=== PATIENT | female | born 1985 | race Caucasian/White ===

== ENCOUNTER 2020-05-09 13:57 | Emergency (ER) | payer OTHER ==
[~2020-05-09] VITALS: Ht 157.5 cm; Wt 88.5 kg
[2020-05-09] MEDS ORDERED: TOPROL XL50 MG (14:21)
[2020-05-09] MEDS ORDERED: NIFEDIPINE20 MG (14:22)
[2020-05-09] MEDS ORDERED: HYDRODIURIL12.5 MG (14:22)
[2020-05-09] MEDS ORDERED: ZOLOFT25 MG (14:22)
[2020-05-09] MEDS ORDERED: PRENATAL MULTI1 EAC3 (14:23)
== END 2020-05-09 19:16 | disposition home or self-care (01) ==
LOC: ER 13:57
DX: O26.851 Spotting complicating pregnancy, first trimester (principal); O36.80X1 Pregnancy with inconclusive fetal viability, fetus 1; O34.11 Maternal care for benign tumor of corpus uteri, first trimester; D25.9 Leiomyoma of uterus, unspecified; O71.7 Obstetric hematoma of pelvis

== ENCOUNTER 2020-06-03 17:59 | Emergency (ER) | payer OTHER ==
[~2020-06-03] VITALS: Ht 157.5 cm; Wt 88.9 kg
[~2020-06-03 17:59] MED LIST: HYDRODIURIL12.5 MG; NIFEDIPINE20 MG; PRENATAL MULTI1 EAC3; TOPROL XL50 MG; ZOLOFT25 MG
[2020-06-03] MEDS ORDERED: ALDOMET250 MG/5 M PO (18:09)
== END 2020-06-04 11:05 | disposition home or self-care (01) ==
LOC: ER 17:59
DX: O26.851 Spotting complicating pregnancy, first trimester (principal); O36.80X1 Pregnancy with inconclusive fetal viability, fetus 1; O34.11 Maternal care for benign tumor of corpus uteri, first trimester; O43.891 Other placental disorders, first trimester; Z3A.08 8 weeks gestation of pregnancy

== ENCOUNTER 2020-06-26 13:07 | Emergency (ER) | payer OTHER ==
[~2020-06-26] VITALS: Ht 157.5 cm; Wt 89.8 kg
[~2020-06-26 13:07] MED LIST changes: +ALDOMET250 MG/5 M PO
== END 2020-06-26 18:11 | disposition home or self-care (01) ==
LOC: ER 13:07
DX: O26.851 Spotting complicating pregnancy, first trimester (principal); O36.80X1 Pregnancy with inconclusive fetal viability, fetus 1

== ENCOUNTER 2020-08-09 22:58 | Inpatient (IN) | payer OTHER ==
[~2020-08-09] VITALS: Ht 157.5 cm; Wt 91.6 kg
--- NOTE | 2020-08-09 23:21 | NUR ---
PTE REFIERE EMBARAZADA Y [place] DESDE HOY EN LA TARDE SE GOVIND S/V YSE UBIAC EN AREA DE OBSERVACION
--- NOTE | 2020-08-09 23:58 | NUR ---
EVALUA PTE. SE ORIENTA A PTE SOBRE [place] MEDICO. PTE REFIERE COMPRENDER. SE COLECTAN MUESTRAS DE LABORATORIO BAJO MEDIDAS ASEPTICAS. SE NOTIFICA SONOGRAMA A
[2020-08-11] MEDS ORDERED: METHYLDOPA250 MG (11:09)
[2020-08-11] MEDS ORDERED: PRENATAL + DHA1 EAC1 PO (11:10)
== END 2020-08-11 15:42 | disposition home or self-care (01) | DRG 805 ==
LOC: ER 22:58 → LDR 08-10 04:20
PROVIDERS: ADMIT Obstetrics & Gynecology; ATTEND Obstetrics & Gynecology
PROC: 4A1HXCZ Monitoring of Products of Conception, Cardiac Rate, External Approach (ICD-10-PCS; 2020-08-10)
PROC: 10E0XZZ Delivery of Products of Conception, External Approach (ICD-10-PCS; principal; 2020-08-11)
PROC: 3E033VJ Introduction of Other Hormone into Peripheral Vein, Percutaneous Approach (ICD-10-PCS; 2020-08-11)
PROC: 3E0P7VZ Introduction of Hormone into Female Reproductive, Via Natural or Artificial Opening (ICD-10-PCS; 2020-08-11)
DX: O36.4XX0 Maternal care for intrauterine death, not applicable or unspecified (principal); O34.32 Maternal care for cervical incompetence, second trimester; Z37.1 Single stillbirth; O60.12X0 Preterm labor second trimester with preterm delivery second trimester, not applicable or unspecified; Z3A.19 19 weeks gestation of pregnancy